=== PATIENT | male | born 1960 | race Caucasian/White ===

== ENCOUNTER 2024-02-04 06:40 | Outpatient (CLI) | payer BC ==
[2024-02-04] MEDS ORDERED: Magnevist 469MG/ML 20 ML VIAL ONE (10:03)
== END 2024-02-04 06:41 | disposition home or self-care (01) ==
LOC: CSHMRI 06:40
PROVIDERS: ATTEND Nurse Practitioner Family
DX: M54.42 Lumbago with sciatica, left side (principal); G89.29 Other chronic pain; Z98.890 Other specified postprocedural states; M48.07 Spinal stenosis, lumbosacral region; M51.27 Other intervertebral disc displacement, lumbosacral region; M51.04 Intervertebral disc disorders with myelopathy, thoracic region
CPT/HCPCS: 72158; 82565; A9579